=== PATIENT | male | born 1950 | race African-American/Black ===

== ENCOUNTER 2017-03-13 16:16 | Inpatient (IN) ==
[2017-03-13] MEDS ORDERED: SODIUM CHLORIDE 0.9% 500 ML IV STA (17:04)
[2017-03-13] MEDS ORDERED: ONDANSETRON 4 MG/2 ML VIAL IV STA (17:04)
[2017-03-13] MEDS ORDERED: PANTOPRAZOLE 40 MG VIAL IV STA (17:04)
[2017-03-13] MEDS ORDERED: PANTOPRAZOLE 40 MG VIAL IV ONE (17:20)
[2017-03-13] MEDS ORDERED: ONDANSETRON 4 MG/2 ML VIAL ONE (17:20)
--- NOTE | 2017-03-13 17:38 | XRay Report ---
Portable chest Date: 03/13/2017 Clinical history: Shortness of breath Comparison: 02/22/2017 Technique: Portable AP sitting chest Findings: The heart is small and compressed by the over expanded lungs. Chronic scarring in the lungs with stable mediastinum. Degenerative changes are noted. Impression: COPD with chronic scarring. No acute cardiopulmonary pathology identified. PROCEDURE INTERPRETED AT [facility] DEPARTMENT OF RADIOLOGY Final Report Signed by: Dr. Zohreh Garcia
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
[2017-03-13 17:49] LABS: Basophils % 0.3 % (0.0-0.8); Hematocrit 24.8 VOL% (42.0-52.0); Hemoglobin 8.6 GM/DL (14.0-18.0); Immature Granulocytes % 0.8 %; Immature Granulocytes Absolute 0.11 #; Lymphocytes # 3.4 10*3/uL (1.4-4.0); Lymphocytes % 23.4 % (21.2-54.2); Mean Corpuscular HGB Conc 34.7 GM/DL (32-36); Mean Corpuscular Hemoglobin 32 PG (27-34); Mean Corpuscular Volume 91.5 FL (87-102); Mean Platelet Volume 11.5 FL (9.6-12.0); Monocytes # 1.5 10*3/uL (0.11-0.8); Monocytes % 10.7 % (1.7-12.7); NRBC # 0.04 10*3/uL; Neutrophils # 9.4 10*3/uL (1.4-7.4); Neutrophils % 64.8 % (38.7-73.9); Platelet Count 153 T/CUMM (130-400); Red Blood Count 2.71 MC/CUMM (3.8-5.5); Red Cell Distribution Width 13.7 % (9.3-17.3); White Blood Count 14.4 T/CUMM (4-12)
--- NOTE | 2017-03-13 17:51 | Emergency Department Note ---
Stephanie Myers [place], am scribing for, and in the presence of, Nahid Parsk MD 17:16. Charly Myers Charles R, MD, personally performed the services described in this documentation, ascribed by Chalo Brown in my presence, and it is both accurate and complete [id number] . Arrival - Arrival Chief Complaint: Nausea/Vomiting/Diarrhea Stated Complaint: VOMITING/OFF BALANCE ED Nursing Triage Note: PT C/O N/V/D AND CHILLS SINCE SATURDAY. STATES STOOL APPEARS BLACK. PT STATES TODAY HE FEELS OFF BALANCE. Mode of Arrival: Ambulatory Limitations: No Limitations Source: Patient Time Seen by Provider: 03/13/17 16:43 - History of Present Illness HPI Narrative: This is a 66 y/o black male presenting to the ED with c/o nausea, vomiting , right sided abdominal pain, and melena stools that onset two days ago. Pt states he ate mushrooms from the grocery store and this is when the vomiting onset. Pt states he drinks alcohol every other day and smokes daily. Pt has intermittent chest pain, states he has vertigo upon standing. Pt has fallen three times today due to being off balance. Pt states when he fell he hit his right side. His PCP is Dr. Lane. He denies fever, chills, diarrhea, back pain , SANTOYO, vision change, and dysuria. Pt's PMHx is unremarkable and states he does not take daily medications. Consistency: constant Severity: moderate Allergies/Adverse Reactions: Allergies Allergy/AdvReac Type Severity Reaction Status Date / Time No Known Allergies Allergy Verified 03/13/17 16:25 Review of System - Review of System 12 point system: reviewed and no additional remarkable complaints except as stated - Review of System Constitutional: Absent: chills, fever, weakness Eyes: Absent: vision change Head/Ears/Nose/Throat: Absent: nasal drainage Respiratory: Absent: cough, wheezing Cardiovascular: Absent: chest pain, dyspnea on exertion Gastrointestinal: Present: abdominal pain (right sided abdominal pain ), nausea , vomiting, melena. Absent: diarrhea Genitourinary male: Absent: dysuria Musculoskeletal: Absent: arm pain, back pain, leg pain, neck pain Skin: Absent: rash Neurological: Present: vertigo. Absent: headache, weakness, numbness, confusion Psychiatric: Absent: anxiety Endocrine: Absent: fatigue Hematological/Lymphatic: Absent: easy bleeding Allergic/Immunologic: Absent: facial swelling Medical,Surgical,& Family Hx - Surgical History Abdominal Surgeries: Surgical HX of: Abdominal Surgery (WOUNDED IN [place]) - Social History Smoking Status: Current every day smoker Frequency of Alcohol Use: Frequently Type of Drug Use: None Exam Vital Signs: Vital Signs Temperature 98.0 F 03/13/17 17:24 Pulse Rate 124 H 03/13/17 17:24 Respiratory Rate 20 03/13/17 17:24 Blood Pressure 102/85 03/13/17 17:24 O2 Sat by Pulse Oximetry 97 03/13/17 17:24 - General General appearance: alert, in no apparent distress - Head Head exam: Present: atraumatic, normocephalic, normal inspection - Eye Eye exam: Present: PERRL, EOMI. Absent: normal appearance (pale conjunctiva ) - ENT ENT exam: Present: mucous membranes dry, TM's normal bilaterally, normal external ear exam. Absent: normal exam, normal oropharynx, mucous membranes moist - Neck Neck exam: Present: normal inspection, full ROM, trachea midline. Absent: tenderness - Chest Chest inspection: Present: normal inspection, symmetric chest wall rise. Absent : tenderness - Respiratory Respiratory exam: Present: rhonchi (bilateral ). Absent: normal lung sounds bilaterally - Cardiovascular Cardiovascular exam: Present: normal rhythm, tachycardia, normal heart sounds. Absent: regular rate - Abdominal Exam Abdominal exam: Present: soft, tenderness (right sided abdominal pain ), normal bowel sounds. Absent: distention - Extremities Exam Extremities exam: Present: normal inspection, full ROM, normal capillary refill. Absent: tenderness, pedal edema, calf tenderness - Back Exam Back exam: Present: normal inspection, full ROM. Absent: tenderness - Neurological Exam Neurological exam: Present: alert, oriented X3, CN II-XII intact, normal gait, reflexes normal - Psychiatric Psychiatric exam: Present: normal affect, normal mood - Skin Skin exam: Present: warm, dry, intact, normal color. Absent: rash Course - Consultations Consultation #1: Hospitalist will admit patient Time: 17:56 Results - Labs CBC & BMP: 03/13/17 17:07 03/13/17 17:07 Lab Results: I have reviewed the patients labs Disposition Clinical Impression: Acute blood loss anemia, GI bleed, Generalized weakness, Hypokalemia Case discussed with: patient Disposition: Still a Patient Condition: Guarded Time of Disposition: 17:56
[2017-03-13 18:02] LABS: PT Patient Result 10.6 SECS
--- NOTE | 2017-03-13 18:02 | EKG Report ---
Stationary ECG Study [facility] ER Test Date: 03/13/2017 6:01:01 PM Pat Name: BRIGIDA LARES Department: Room: Gender: M [employer] Professor: LINDSAY : 1950 Requested by: Nahid Morgan Order Number: [id number] Reading MD: STEVEN CACERES Intervals [place] Rate: 96 P: 81 UT: 137 QRS: 82 QRSD: 83 T: 77 QT: 384 QTc: 438 Interpretive Statements SINUS RHYTHM NONSPECIFIC T-WAVE ABNORMALITY Electronically Signed On 03-18-17 11:26:07 CDT by STEVEN CACERES [email or web address]
[2017-03-13 18:07] LABS: Albumin 3.4 G/DL (3.4-5.0); Calcium 8.4 MG/DL (8.5-10.1); Osmolality,Calculated 290.8 MOS/KG (273-304); Total Protein 5.6 G/DL (6.4-8.3); Troponin I Only 0.025 NG/ML (0.00-0.045)
[2017-03-13] MEDS ORDERED: POTASSIUM CHLORIDE 20 MEQ TABLET PO STA (18:26)
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
[2017-03-13 18:43] LABS: Risk Ratio 2.67; VLDL CHOLESTEROL 55.8 MG/DL
[2017-03-13] MEDS ORDERED: LORazepam 2 MG/1 ML VIAL IV PRN (18:45)
[2017-03-13] MEDS ORDERED: POTASSIUM CHLORIDE 20 MEQ TABLET PO ONE (18:47)
[2017-03-13] MEDS ORDERED: THIAMINE INJ 100 MG, FOLIC ACID INJ 1 MG, MULTIVITAMIN INJ 10 ML in SODIUM CHLORIDE 0.9... IV ONE (19:03)
[2017-03-13 19:51] LABS: Apearance,Urine CLEAR (Clear); Bilirubin,Urine Negative (Negative); Blood, Urine Negative (Negative); Glucose,Urine (UA) Negative (Negative); Hyaline Casts,Urine 3 /LPF (0-3); Ketones,Urine Negative (Negative); Mucus,Urine Occasional /LPF (Occasional); Nitrite,Urine Negative (Negative); Protein,Urine Negative; RBC,Urine 2 /HPF (0-4); Squamous Epithelial Cell,Urine Occasional /HPF (0-10); Urine Color Yellow (Yellow); Urine Specific Gravity 1.016 (1.001-1.035); Urine Urobilinogen < 2.0 EU/DL (0.2-1.0); WBC,Urine 4 /HPF (0-6)
[2017-03-13] MEDS ORDERED: POTASSIUM CHLORIDE RIDER 10 MEQ in PREMIX 1 EACH IV PRN (20:04)
[2017-03-13 20:05] LABS: Barbiturates Screen,Urine Negative (Negative); Benzodiazepines Screen,Urine Negative (Negative); Cannabinoid Screen,Urine Positive (Negative); Opiate Screen,Urine Negative (Negative); Phencyclidine Screen,Urine Negative (Negative)
[2017-03-13 20:18] LABS: Folate 19.4 NG/ML (5.4-24.0)
[2017-03-13 20:33] LABS: Hematocrit 21.6 VOL% (42.0-52.0); Hemoglobin 7.5 GM/DL (14.0-18.0)
[2017-03-13] MEDS: SODIUM CHLORIDE 0.9% 1,000 ML IV SCH (20:36)
[2017-03-13 21:02] LABS: % Iron Saturation 63.9 % (18-50); Ferritin 107.2 ng/ml (26-388); Troponin I Only 0.029 NG/ML (0.00-0.045)
--- NOTE | 2017-03-13 21:08 | Ultrasound Report ---
Exam: Carotid ultrasound Date: 03/13/2017 Comparison: None Technique: Duplex scans of the carotid and vertebral arteries using B-mode/Smyth scale imaging and Doppler spectral analysis and color flow. Reason: Syncope Findings: The right ICA measures 5.8 mm in diameter and the left ICA measures 5.8 mm in diameter. Color-flow documented in the visualized arteries. The peak systolic velocities are as follows: Right CCA: 85.9 cm/s Right ICA: 103.6 cm/s Right ECA: 116.8 cm/s Left CCA: 82.4 cm/s Left ICA: 100.0 cm/s Left ECA: 124.2 cm/s The peak systolic ICA/CCA velocity ratios are as follows: 1.2 on the right and 1.2 on the left. Antegrade flow is present in both vertebral arteries. Impression:[Less than 50% stenosis in both internal carotid arteries with minimal heterogeneous plaque formation. Antegrade flow in both vertebral arteries.] The Society of Radiologists in Ultrasound consensus conference criteria was used. The Ultrasound images were captured and stored. PROCEDURE INTERPRETED AT [facility] DEPARTMENT OF RADIOLOGY Final Report Signed by: Dr. Zohreh Garcia
--- NOTE | 2017-03-13 21:11 | Ultrasound Report ---
Exam: US abdomen Date: 03/13/2017 8:04 PM Comparison: None Indication: Vomiting Technique:[Multiple transabdominal real-time scans were obtained of the abdomen. Ultrasound images were captured distorted.] Color flow scans obtained. Findings: No gallbladder pathology is identified. CBD is normal in size measuring 3.5 mm. The liver, spleen, and kidneys have an unremarkable appearance. Right kidney measures 100 mm in length. Left kidney measures 95 mm in length. The pancreas and aortic bifurcation are obscured by bowel gas. The visualized aorta is normal in size with color flow documented in the IVC and portal vein. Impression: No definite gallbladder pathology identified. The pancreas is obscured by bowel gas. The Ultrasound images were captured and stored. PROCEDURE INTERPRETED AT [facility] DEPARTMENT OF RADIOLOGY Final Report Signed by: Dr. Zorheh Garcia
[2017-03-13 21:27] LABS: Hepatitis A Ab IgM Quant 0.16 Index; Hepatitis A Ab IgM Result Negative (Negative); Hepatitis B Core IgM Quant 0.17 Index; Hepatitis B Core IgM Result Negative (Negative); Hepatitis B Surface Ag Quant < 0.10 Index; Hepatitis B Surface Ag Result Negative (Negative); Hepatitis C Virus Ab Quant 0.09 Index; Hepatitis C Virus Ab Result Negative (Negative)
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
[2017-03-13] MEDS ORDERED: SODIUM CHLORIDE 0.9% 250 ML IV PRN (22:28)
[2017-03-13] MEDS ORDERED: FUROSEMIDE 20 MG/2 ML VIAL IV ONE (22:31)
[2017-03-14] MEDS: PANTOPRAZOLE INJ 200 MG in SODIUM CHLORIDE 0.9% 250 ML IV SCH ×2 (00:06→21:17)
[2017-03-14] MEDS: SODIUM CHLORIDE 0.9% 1,000 ML IV SCH ×3 (04:07→21:18)
[2017-03-14 07:46] LABS: Basophils # 0.1 10*3/uL (0.0-0.2); Basophils % 0.6 % (0.0-0.8); Eosinophils % 0.3 % (0.00-10.9); Hematocrit 25.6 VOL% (42.0-52.0); Immature Granulocytes % 0.3 %; Immature Granulocytes Absolute 0.03 #; Lymphocytes # 3.6 10*3/uL (1.4-4.0); Lymphocytes % 34.9 % (21.2-54.2); Mean Corpuscular HGB Conc 35.2 GM/DL (32-36); Mean Corpuscular Hemoglobin 31 PG (27-34); Mean Corpuscular Volume 88.3 FL (87-102); Mean Platelet Volume 10.8 FL (9.6-12.0); Monocytes # 1.1 10*3/uL (0.11-0.8); Monocytes % 10.8 % (1.7-12.7); NRBC # 0.02 10*3/uL; Neutrophils # 5.5 10*3/uL (1.4-7.4); Neutrophils % 53.1 % (38.7-73.9); Platelet Count 127 T/CUMM (130-400); Red Cell Distribution Width 14.6 % (9.3-17.3); White Blood Count 10.3 T/CUMM (4-12)
[2017-03-14 08:14] LABS: Calcium 7.5 MG/DL (8.5-10.1); Osmolality,Calculated 287.3 MOS/KG (273-304); Potassium 3.7 MMOL/L (3.5-5.1)
[2017-03-14 08:17] LABS: Troponin I Only 0.025 NG/ML (0.00-0.045)
[2017-03-14 09:07] LABS: Albumin 2.7 G/DL (3.4-5.0); Bilirubin,Total 0.6 MG/DL (0.2-1.0); Calcium 7.5 MG/DL (8.5-10.1); Magnesium 1.9 MG/DL (1.8-2.4); Osmolality,Calculated 287.3 MOS/KG (273-304); Potassium 3.6 MMOL/L (3.5-5.1); Total Protein 4.9 G/DL (6.4-8.3)
--- NOTE | 2017-03-14 10:16 | Hospitalist Progress Note ---
<Suha Aguirreda - Last Filed: 03/14/17 10:13> Assessment and Plan (1) ETOH abuse Status: Acute Assessment and plan: The patient admitted to drinking daily. We will start withdrawal protocol and monitor for impending DT's. 03/14-No s/s of withdrawal noted; however he has not met the 24 hour adrian yest; we will monitor. Current Visit: Yes (2) Nicotine abuse Status: Acute Assessment and plan: Patient reported current smoking status. He expresses no desire to stop; however agreed to nicotine patch placement. Current Visit: Yes (3) Acute blood loss anemia Status: Acute Current Visit: Yes (4) GI bleed Status: Acute Assessment and plan: We will hydrate, start PPI gtt, and keep NPO. We will obtain serial H/H and transfuse if needed. Will consult GI to evaluate. 03/14-Tranfused on last night; Protonix gtt infsuing; continue IVF's, keep NPO. Awaiting evaluation per GI. Current Visit: Yes Qualifiers: GI bleed type/associated pathology: unspecified gastrointestinal hemorrhage type Qualified Code(s): K92.2 - Gastrointestinal hemorrhage, unspecified (5) Acute kidney injury Status: Acute Assessment and plan: 03/13This is most likely due volume depletion. We will rehydrate and recheck labs in AM. 03/14-Improvement in renal function; continue IVF as ordered. Current Visit: Yes Hospitalist: Subjective Interval history: Patient seen and examined; multiple bloody stools on last night. Transfused on last night; awaiting GI consult for possible scope today. Exam - Constitutional Vitals: Period Temp Pulse Resp BP Sys/Rodriguez Pulse Ox Last 24 Hr 97.4 F-99.6 F 68-111 16-20 83-127/59-87 96-100 General appearance: normal weight, no acute distress - Head Head exam: Present: normal inspection, normocephalic, atraumatic - Eye Eye exam: Present: EOMI. Absent: conjunctival injection, nystagmus Pupils: Present: FERMIN, normal accommodation - ENT ENT exam: Present: normal exam - Neck Neck exam: Present: normal inspection. Absent: lymphadenopathy, meningismus, tenderness, thyromegaly - Respiratory Respiratory exam: Present: clear to auscultation bilaterally. Absent: rales, rhonchi, stridor, wheezes - Cardiovascular Cardiovascular exam: Present: regular rate and rhythm. Absent: carotid bruit, diastolic murmur, gallop, JVD, rubs, systolic murmur - GI/Abdominal GI/Abdominal exam: Present: normal bowel sounds, soft. Absent: distended, firm , guarding, tenderness - Extremities Exam Extremities exam: Present: normal inspection, normal capillary refill, full ROM. Absent: edema - Back Exam Back exam: Present: normal inspection - Neurological Exam Neurological exam: Present: alert, oriented X3, CN II-XII intact - Psychiatric Psychiatric exam: Present: normal affect, normal mood - Skin Skin exam: Present: warm, dry Results - Labs CBC & BMP: 03/14/17 07:34 03/14/17 08:28 Lab Results: I have reviewed the past 24 hour labs <Jeevan Azul - Last Filed: 03/14/17 11:32> Hospitalist: Subjective Interval history: Patient seen and examined along with HERMANN Aguirre, agree with history, assessment and plan as documented. H/H improved after blood transfusion overnight. GI consulted. Exam - Constitutional Vitals: Period Temp Pulse Resp BP Sys/Rodriguez Pulse Ox Last 24 Hr 97.4 F-99.6 F 66-111 16-20 83-127/59-87 96-100 Results - Labs CBC & BMP: 03/14/17 07:34 03/14/17 08:28
--- NOTE | 2017-03-14 13:07 | Gastrointestinal Consult Note ---
<JamessusannahAnna Marie Marisel - Last Filed: 03/14/17 13:03> Assessment and Plan (1) GI bleed Status: Acute Assessment and plan: 03/14-report of sudden onset severe abdominal pain and cramping with nausea, vomiting, and melena. History of long-term alcohol use as well as marijuana. Findings on admission of anemia with hemoglobin 10.5. CT of abdomen done without contrast on admission with only findings of duodenal diverticulum, gaseous distention of colon, and lipoma to right abdominal wall musculature. 4 + occult stools for blood. Plan for EGD tomorrow to further evaluate. Plan an addendum to follow by Dr. Mohan. Current Visit: Yes Qualifiers: GI bleed type/associated pathology: unspecified gastrointestinal hemorrhage type Qualified Code(s): K92.2 - Gastrointestinal hemorrhage, unspecified History of Present Illness Chief complaint: Abdominal pain, melena History of present illness: Mr. Wade is a 66 year old male who presented to the emergency room on yesterday afternoon with complaints of nausea, vomiting, right-sided abdominal pain and melena. Patient is a poor historian at present time due to he is agitated regarding his n.p.o. status. Patient does not provide very much history. Information is obtained mostly from chart review. Patient is reported to have a history of abdominal surgery as result of a shrapnel injury that he sustained during his time at [facility]. He states that on yesterday after he ate some mushrooms he just purchased from the store, he had a sudden onset of nausea and vomiting. He also complains of some chest pain and dizziness following this. He states that he did fall several times after this. He reports having some dark tarry stools as of recent as well. He has a history of smoking and he does drink daily with history of long-term alcohol use. Patient was found on admission to be hypotensive and was fluid resuscitated. He states that he does take naproxen often here recently due to dental pain. He denies a history of weight loss but does report that he uses marijuana regularly. He cannot recall his last drink but does report drinking a half a pint of liquor every other day. He has no prior history of endoscopy. He is seen at the [facility] for his routine care per patient. On admission he was found to have a hemoglobin of 7.5. He received 2 units of packed red blood cells and hemoglobin currently stable at 9.0. BUN/creatinine ratio 34. He was positive for marijuana on his drug screen. Negative hepatitis panel. CT of abdomen findings noted. Home Medications Medication Instructions Recorded Confirmed Type Albuterol Inhaler [Proventil 2 puffs INH Q4HR 03/14/17 03/14/17 History Inhaler] Cyproheptadine Tab [Periactin Tab] 4 mg PO TID 03/14/17 03/14/17 History Naproxen [Naprosyn Tab] 75 mg PO BID 03/14/17 03/14/17 History Allergies Allergy/AdvReac Type Severity Reaction Status Date / Time No Known Allergies Allergy Verified 03/13/17 16:25 Medical,Surgical,& Family Hx - Surgical History Abdominal Surgeries: Surgical HX of: Abdominal Surgery (WOUNDED IN [place]) - Social History Smoking Status: Current every day smoker Frequency of Alcohol Use: Frequently Type of Drug Use: None 12 point system: reviewed and no additional remarkable complaints except as stated - Constitutional Constitutional: Present: as per HPI - EENT Eyes: Present: as per HPI Ears: Present: as per HPI Nose, mouth and throat: Present: as per HPI - Cardiovascular Cardiovascular: Present: as per HPI - Respiratory Respiratory: Present: as per HPI - Gastrointestinal Gastrointestinal: Present: as per HPI, abdominal pain, melena, nausea, vomiting - Genitourinary Genitourinary: Present: as per HPI - Musculoskeletal Musculoskeletal: Present: as per HPI - Neurological Neurological: Present: as per HPI - Psychiatric Psychiatric: Present: as per HPI - Endocrine Endocrine: Present: as per HPI - Hematologic/Lymphatic Hematologic/Lymphatic: Present: as per HPI Exam - Constitutional Vitals: Period Temp Pulse Resp BP Sys/Rodriguez Pulse Ox Last 24 Hr 97.4 F-99.6 F 62-111 16-20 83-127/59-87 96-100 General appearance: normal weight, under weight - Head Head exam: Present: normal inspection, normocephalic - Eye Eye exam: Present: other (Lids and conjunctive are unremarkable). Absent: scleral icterus - ENT ENT exam: Present: normal exam, normal oropharynx - Neck Neck exam: Present: normal inspection - Respiratory Respiratory exam: Present: clear to auscultation bilaterally. Absent: rales, rhonchi, wheezes - Cardiovascular Cardiovascular exam: Present: regular rate and rhythm. Absent: diastolic murmur , JVD, systolic murmur - GI/Abdominal GI/Abdominal exam: Present: normal bowel sounds, soft. Absent: ascites, distended, mass, organomegaly, tenderness - Extremities Exam Extremities exam: Present: normal inspection, full ROM - Back Exam Back exam: Present: normal inspection - Neurological Exam Neurological exam: Present: alert, oriented X3 - Psychiatric Psychiatric exam: Present: normal affect, normal mood - Skin Skin exam: Present: normal color, warm, dry Results - Labs CBC & BMP: 03/14/17 07:34 03/14/17 08:28 Lab Results: I have reviewed the past 24 hour labs - Diagnostic Findings Procedure: CT Abdomen and Pelvis: report reviewed by me <Eric Mohan - Last Filed: 03/14/17 18:26> History of Present Illness History of present illness: Mr. Wade is a 66 year old male Exam - Constitutional Vitals: Period Temp Pulse Resp BP Sys/Rodriguez Pulse Ox Last 24 Hr 97.4 F-99.6 F 62-111 16-20 83-127/59-87 96-100 Results - Labs CBC & BMP: 03/14/17 14:11 03/14/17 08:28
[2017-03-14 14:26] LABS: Hematocrit 24.5 VOL% (42.0-52.0); Hemoglobin 8.3 GM/DL (14.0-18.0)
--- NOTE | 2017-03-14 16:39 | Event Note ---
Patient seen and evaluated. Vital signs and H/H are stable. No futher bloody stools noted. He is hemodynamically stable at this point. He is appropriate to transfer to the telemetry unit for continuation of care.
--- NOTE | 2017-03-14 17:27 | ECHO Report ---
Manny Wade Exam Date: 03/14/2017 09:08 Referring Physician: Technologist: Lucero Metcalf RDCS Age: 66 Ht (in): 67 Wt (lb): 123 Gender: M Exam Location: [facility] Echo Indications: Syncope and collapse, Acute blood loss anemia, Acute kidney injury, Weakness, Nicotine abuse, ETOH abuse BP: 99 / 65 HR: 74 Rhythm: Sinus Technical Quality: IMPRESSIONS Normal chamber sizes Normal LV systolic function with ejection fraction estimate to be 65% 1+ tricuspid regurgitation with RVSP 28 mmHg plus RAP MEASUREMENTS (Male / Female) Normal Values 2D ECHO LV Diastolic Diameter PLAX 4.1 cm 4.2 - 5.9 / 3.9 - 5.3 cm LV Systolic Diameter PLAX 2.6 cm LV Fractional Shortening PLAX 36.0 % IVS Diastolic Thickness 0.8 cm 0.6 - 1.0 / 0.6 - 0.9 cm LVPW Diastolic Thickness 0.8 cm 0.6 - 1.0 / 0.6 - 0.9 cm RV Internal Dim ED PLAX 3.4 cm Aortic Root Diameter 3.0 cm LA Systolic Diameter LX 2.8 cm 3.0 - 4.0 / 2.7 - 3.8 cm DOPPLER TR Peak Velocity 265.0 cm/s TR Peak Gradient 28.1 mmHg FINDINGS Left Ventricle Normal left ventricular cavity size. Normal left ventricular wall thickness. Left ventricular ejection fraction is estimated Right Ventricle The right ventricle is normal in size and function. Right Atrium The right atrium is normal in size. Left Atrium The left atrium is normal in size. Mitral Valve Morphologically normal mitral valve without significant stenosis or prolapse. There is no mitral regurgitation. Aortic Valve Morphologically normal aortic valve without significant sclerosis or stenosis. There is no aortic regurgitation. Tricuspid Valve Morphologically normal tricuspid valve. Mild tricuspid valve regurgitation. Tricuspid regurgitation velocities suggest a PAP of 38 mmHg. Pulmonic Valve Morphologically normal pulmonic valve without significant stenosis. There is no pulmonic regurgitation. Pericardium Normal pericardium without effusion. Aorta Normal ascending aorta dimension. Byron Martínez (Electronically Signed) Final Date: 14 March 2017 17:26
[2017-03-15] MEDS: SODIUM CHLORIDE 0.9% 1,000 ML IV SCH ×3 (04:41→20:45)
[2017-03-15 06:14] LABS: Basophils # 0.1 10*3/uL (0.0-0.2); Basophils % 0.8 % (0.0-0.8); Eosinophils # 0.2 10*3/uL (0.0-0.87); Eosinophils % 3.2 % (0.00-10.9); Hematocrit 22.2 VOL% (42.0-52.0); Hemoglobin 7.6 GM/DL (14.0-18.0); Immature Granulocytes % 0.3 %; Immature Granulocytes Absolute 0.02 #; Lymphocytes # 2.7 10*3/uL (1.4-4.0); Lymphocytes % 37.5 % (21.2-54.2); Mean Corpuscular HGB Conc 34.2 GM/DL (32-36); Mean Corpuscular Hemoglobin 30 PG (27-34); Mean Corpuscular Volume 88.8 FL (87-102); Mean Platelet Volume 11.5 FL (9.6-12.0); Monocytes # 0.7 10*3/uL (0.11-0.8); Monocytes % 10.1 % (1.7-12.7); NRBC # 0.03 10*3/uL; Neutrophils # 3.5 10*3/uL (1.4-7.4); Neutrophils % 48.1 % (38.7-73.9); Platelet Count 122 T/CUMM (130-400); Red Cell Distribution Width 15.3 % (9.3-17.3); White Blood Count 7.3 T/CUMM (4-12)
[2017-03-15] MEDS ORDERED: SODIUM CHLORIDE 0.9% 250 ML IV PRN ×3 (06:39→07:48)
[2017-03-15 07:14] LABS: Albumin 2.3 G/DL (3.4-5.0); Bilirubin,Total 0.6 MG/DL (0.2-1.0); Calcium 7.1 MG/DL (8.5-10.1); Magnesium 1.9 MG/DL (1.8-2.4); Phosphorous 2.7 MG/DL (2.5-4.9); Potassium 3.6 MMOL/L (3.5-5.1)
--- NOTE | 2017-03-15 11:10 | Hospitalist Progress Note ---
<Suha Aguirreda - Last Filed: 03/15/17 11:15> Assessment and Plan (1) ETOH abuse Status: Acute Assessment and plan: The patient admitted to drinking daily. We will start withdrawal protocol and monitor for impending DT's. 03/14-No s/s of withdrawal noted; however he has not met the 24 hour adrian yesterday; we will monitor. 03/15-No symptoms noted; will continue to monitor. Current Visit: Yes (2) Nicotine abuse Status: Acute Assessment and plan: Patient reported current smoking status. He expresses no desire to stop; however agreed to nicotine patch placement. Current Visit: Yes (3) Acute blood loss anemia Status: Acute Current Visit: Yes (4) GI bleed Status: Acute Assessment and plan: We will hydrate, start PPI gtt, and keep NPO. We will obtain serial H/H and transfuse if needed. Will consult GI to evaluate. 03/14-Tranfused on last night; Protonix gtt infsuing; continue IVF's, keep NPO. Awaiting evaluation per GI. 03/15-EGD this AM; H/H at 7.6/22.2; will transfuse. Current Visit: Yes Qualifiers: GI bleed type/associated pathology: unspecified gastrointestinal hemorrhage type Qualified Code(s): K92.2 - Gastrointestinal hemorrhage, unspecified (5) Acute kidney injury Status: Acute Assessment and plan: 03/13This is most likely due volume depletion. We will rehydrate and recheck labs in AM. 03/14-Improvement in renal function; continue IVF as ordered. 03/15-Continue IVF as previously ordered. BUN/Creatinine stable at 12/0.70. Current Visit: Yes Hospitalist: Subjective Interval history: Patient seen and evaluated. No significant overnight issues. Transferred from ICU on last night. Noted decrease in H/H today; 7.6/22.2 drown from 8.3/24.5. Will transfuse; EGD this AM. Exam - Constitutional Vitals: Period Temp Pulse Resp BP Sys/Rodriguez Pulse Ox Last 24 Hr 97.3 F-99.5 F 60-80 15-20 87-126/56-75 97-100 General appearance: normal weight, no acute distress - Head Head exam: Present: normal inspection, normocephalic - Eye Eye exam: Present: EOMI. Absent: conjunctival injection Pupils: Present: FERMIN, normal accommodation - ENT ENT exam: Present: normal exam, normal external ear exam, normal oropharynx - Neck Neck exam: Present: normal inspection. Absent: lymphadenopathy, meningismus, tenderness, thyromegaly - Respiratory Respiratory exam: Present: clear to auscultation bilaterally. Absent: rales, rhonchi, stridor, wheezes - Cardiovascular Cardiovascular exam: Present: regular rate and rhythm. Absent: carotid bruit, diastolic murmur, gallop, JVD, rubs, systolic murmur - GI/Abdominal GI/Abdominal exam: Present: normal bowel sounds, soft - Extremities Exam Extremities exam: Present: normal inspection, full ROM. Absent: normal capillary refill, edema - Neurological Exam Neurological exam: Present: alert, oriented X3, CN II-XII intact - Psychiatric Psychiatric exam: Present: normal affect, normal mood - Skin Skin exam: Present: normal color, warm, dry Results - Labs CBC & BMP: 03/15/17 04:37 03/15/17 04:37 Lab Results: I have reviewed the past 24 hour labs <Herve Tan - Last Filed: 03/15/17 16:42> Hospitalist: Subjective Interval history: She had visits with nurse practitioner. 66-year-old with alcohol abuse who was admitted for GI bleed. Chart reviewed, previous events noted. Mild drop in hematocrit noted, stable hemodynamics. I agree with planned PRBC transfusion today. Monitor H&H Exam - Constitutional Vitals: Period Temp Pulse Resp BP Sys/Rodriguez Pulse Ox Last 24 Hr 96.4 F-99.0 F 56-71 14-20 93-134/54-068 97-100 Results - Labs CBC & BMP: 03/15/17 04:37 03/15/17 04:37
[2017-03-15] MEDS ORDERED: PROPOFOL 200 MG/20 ML VIAL IV ONE (11:13)
[2017-03-15] MEDS ORDERED: LIDOCAINE 2% 5 ML VIAL ONE (11:13)
--- NOTE | 2017-03-15 11:29 | History and Physical Update ---
History and Physical Update - Physical Exam Mental Status: alert and oriented Heart: regular rate and rhythm Lung: clear to auscultation Abdomen: within normal limits Vitals: within normal limits
--- NOTE | 2017-03-15 11:33 | Operative Note ---
Date of procedure: 03/15/17 Pre-op diagnosis: Melena Procedure: EGD 66-year-old gentleman with acute GI bleeding and melena history of nonsteroidal and alcohol use now for upper endoscopy to further evaluate. Informed consent was obtained the patient He was sedated with MAC anesthesia per anesthesia protocol. Patient placed in left lateral decubitus position the Olympus flexible video upper endoscope was inserted into the oral cavity under direct vision the esophagus was intubated. Findings: Esophagus-normal esophageal mucosa no esophageal varices Kyle's or stricture was identified. Small hiatal hernia was present. Stomach-normal insufflation no blood was present in the stomach. There are several acute small gastric ulcers in the antrum and at the level of the incisura. The largest of these is approximately 6 mm on the incisura with no visible vessel or active bleeding. The other ulcers are all 3-4 mm and are present mostly in the antrum of the stomach. These ulcers appear benign and are likely nonsteroidal induced was elected to not biopsy them at this time. Pylorus-normal Duodenum-acute bulbar duodenitis without active ulceration. No blood was present to the third portion of the duodenum. The procedure terminated placed our procedure well his discharge recovery in good condition. Postop diagnosis: 1. Acute peptic ulcer disease with no visible vessel or stigmata of recent bleeding. Suspect secondary to nonsteroidals and alcohol use. Continue PPI treatment and transfuse packed red blood cells as needed. Will need repeat endoscopy in 2 months to verify healing. Will increase diet as tolerated. Discontinuation of nonsteroidals and alcohol are recommended. Anesthesia: MAC Surgeon / Physician: Eric Mohan Estimated blood loss: none Specimens: none sent Condition: stable Disposition: post procedure unit Results - Labs CBC & BMP: 03/15/17 04:37 03/15/17 04:37 Discharge Plan - Discharge Medications No Action Cyproheptadine Tab [Periactin Tab] 4 mg PO TID Naproxen [Naprosyn Tab] 75 mg PO BID Albuterol Inhaler [Proventil Inhaler] 2 puffs INH Q4HR - Follow Up or Referral - Forms/Instructions
--- NOTE | 2017-03-15 11:35 | Anesthesia Post-Op ---
Anesthesia Post OP - Post Ansesthetic Evaluation Patient seen in post op: Yes Resp: within normal limits CV: within normal limits Mental: within normal limits Temp: within normal limits [id number]: within normal limits Nausea and Vomiting: within normal limits Pain: within normal limits
[2017-03-15] MEDS: PANTOPRAZOLE INJ 200 MG in SODIUM CHLORIDE 0.9% 250 ML IV SCH (20:45)
[2017-03-16] MEDS: PANTOPRAZOLE INJ 200 MG in SODIUM CHLORIDE 0.9% 250 ML IV SCH (00:25)
[2017-03-16] MEDS: SODIUM CHLORIDE 0.9% 1,000 ML IV SCH (04:07)
[2017-03-16 04:26] LABS: Basophils # 0.1 10*3/uL (0.0-0.2); Basophils % 0.7 % (0.0-0.8); Eosinophils # 0.4 10*3/uL (0.0-0.87); Eosinophils % 3.7 % (0.00-10.9); Hematocrit 28.3 VOL% (42.0-52.0); Hemoglobin 9.7 GM/DL (14.0-18.0); Immature Granulocytes % 0.4 %; Immature Granulocytes Absolute 0.04 #; Lymphocytes % 30.7 % (21.2-54.2); Mean Corpuscular HGB Conc 34.3 GM/DL (32-36); Mean Corpuscular Hemoglobin 31 PG (27-34); Mean Platelet Volume 11.6 FL (9.6-12.0); Monocytes % 10.3 % (1.7-12.7); NRBC # 0.03 10*3/uL; Neutrophils # 5.3 10*3/uL (1.4-7.4); Neutrophils % 54.2 % (38.7-73.9); Platelet Count 131 T/CUMM (130-400); Red Blood Count 3.18 MC/CUMM (3.8-5.5); Red Cell Distribution Width 14.9 % (9.3-17.3); White Blood Count 9.8 T/CUMM (4-12)
[2017-03-16 04:48] LABS: Albumin 2.5 G/DL (3.4-5.0); Bilirubin,Total 0.8 MG/DL (0.2-1.0); Calcium 7.7 MG/DL (8.5-10.1); Osmolality,Calculated 282.1 MOS/KG (273-304); Phosphorous 3.7 MG/DL (2.5-4.9); Potassium 3.8 MMOL/L (3.5-5.1); Total Protein 4.3 G/DL (6.4-8.3)
--- NOTE | 2017-03-16 09:12 | Hospitalist History & Physical ---
Assessment and Plan (1) ETOH abuse Status: Acute Assessment and plan: The patient admitted to drinking daily. We will start withdrawal protocol and monitor for impending DT's. 03/14-No s/s of withdrawal noted; however he has not met the 24 hour adrian yesterday; we will monitor. 03/15-No symptoms noted; will continue to monitor. Current Visit: Yes (2) Nicotine abuse Status: Acute Assessment and plan: Patient reported current smoking status. He expresses no desire to stop; however agreed to nicotine patch placement. Current Visit: Yes (3) Acute blood loss anemia Status: Acute Current Visit: Yes (4) GI bleed Status: Acute Assessment and plan: We will hydrate, start PPI gtt, and keep NPO. We will obtain serial H/H and transfuse if needed. Will consult GI to evaluate. 03/14-Tranfused on last night; Protonix gtt infsuing; continue IVF's, keep NPO. Awaiting evaluation per GI. 03/15-EGD this AM; H/H at 7.6/22.2; will transfuse. Current Visit: Yes Qualifiers: GI bleed type/associated pathology: unspecified gastrointestinal hemorrhage type Qualified Code(s): K92.2 - Gastrointestinal hemorrhage, unspecified (5) Acute kidney injury Status: Acute Assessment and plan: 03/13This is most likely due volume depletion. We will rehydrate and recheck labs in AM. 03/14-Improvement in renal function; continue IVF as ordered. 03/15-Continue IVF as previously ordered. BUN/Creatinine stable at 12/0.70. Current Visit: Yes History of Present Illness History of present illness: Mr. Wade is a 66 year old male Home Medications Medication Instructions Recorded Confirmed Type Albuterol Inhaler [Proventil 2 puffs INH Q4HR 03/14/17 03/14/17 History Inhaler] Cyproheptadine Tab [Periactin Tab] 4 mg PO TID 03/14/17 03/14/17 History Naproxen [Naprosyn Tab] 75 mg PO BID 03/14/17 03/14/17 History Allergies Allergy/AdvReac Type Severity Reaction Status Date / Time No Known Allergies Allergy Verified 03/13/17 16:25 Medical,Surgical,& Family Hx - Medical History Neurology: No history of: Seizures - Surgical History Abdominal Surgeries: Surgical HX of: Abdominal Surgery (WOUNDED IN [place]) - Social History Smoking Status: Current every day smoker Frequency of Alcohol Use: Frequently Type of Drug Use: None Exam - Constitutional Vitals: Period Temp Pulse Resp BP Sys/Rodriguez Pulse Ox Last 24 Hr 96.4 F-99.2 F 54-71 14-20 91-134/54-068 96-100 Results - Labs CBC & BMP: 03/16/17 03:24 03/16/17 03:24
--- NOTE | 2017-03-16 09:17 | Gastrointestinal Progress Note ---
Assessment and Plan - Time spent with patient Time spent with patient: Greater than 30 minutes (1) Gastric ulcer Status: Acute Current Visit: Yes (2) ETOH abuse Status: Acute Current Visit: Yes (3) Other specified counseling Status: Acute Current Visit: Yes Exam (Progress Note) - Constitutional Vitals: Period Temp Pulse Resp BP Sys/Rodriguez Pulse Ox Last 24 Hr 96.4 F-99.2 F 54-71 14-20 91-134/54-068 96-100 Results - Labs CBC & BMP: 03/16/17 03:24 03/16/17 03:24 Note Addendum: PLEASE NOTE -- automatic citation of patient information is unavoidable in this electronic note. I have made a reasonable effort to review the information cited , but it is not a part of my evaluation, impression, or recommendation unless specifically discussed in the dictated text that follows. As well, voice recognition software was used in the creation of this clinical note. Reasonable effort was made to identify and correct gross errors. Despite proofreading, errors in chief bank examiner may be present, including nonsense verbiage at times. If you encounter such an error, please contact me at [phone] for discussion and correction. -- [place] Chief complaint: peptic ulcer History of present illness: the patient is a 66-year-old male seen for follow- up of peptic ulcer disease. The patient underwent upper endoscopy with Dr. Mohan yesterday and finding of several small gastric ulcers, not actively bleeding. The patient received three units of packed red blood cells overnight with an appropriate response. No overt blood loss has been reported overnight. The patient reports feeling well with no abdominal pain. He has tolerated an oral diet and expects to be discharged today. Review of systems: 12 point review of systems was negative except as documented above. Inpatient medications: reviewed Physical examination: Vital Signs: Current vital signs reviewed and documented above. General Appearance: well-appearing. Not acutely ill. Head: Normocephalic. Neck: Palpation of the neck revealed no abnormalities. Eyes: No scleral icterus. No scleral injection. No conjunctival pallor. Oral Cavity: Odor of breath was normal. No drooling was observed. Lips showed no abnormalities. Floor of the mouth showed no abnormalities. Pharynx: Oropharynx was normal. Lungs: Respiration rhythm and depth was normal. Cardiovascular: Heart rate and rhythm were normal. No murmurs were appreciated. Abdomen: abdomen was not distended. Abdominal palpation revealed no tenderness and no hepatosplenomegaly. Ascites was not discovered. Abdominal auscultation revealed positive bowel sounds. Musculoskeletal System: Musculoskeletal system was grossly normal. Neurological: level of consciousness was normal. Speech was normal. Skin: General appearance was normal. Color and pigmentation were normal. No skin lesions. Laboratory: what blood count 9.8, hemoglobin 9.7, hematocrit 28.3, platelets 131 , ALT 23, AST 31, total bilirubin 0.8 Radiology: reviewed Impressions: 1. Gastric ulcer -- this is likely from chronic NSAID and alcohol abuse. I recommend continued monitoring of blood counts with further transfusion as indicated. Otherwise I recommend continued volume management with crystalloid as indicated. I recommend continued proton pump inhibitor both now and after discharge for at least two months. I recommend abstinence from both alcohol and NSAID. The patient will need surveillance upper endoscopy in 2 [address] Mohan or with the [facility] at his discretion. 2. Other specified counseling: The patient was seen for greater than 30 minutes. The patient was counseled for greater than 50% of this time regarding differential diagnosis, likely diagnosis, diagnostic and therapeutic alternatives, risks/benefits/alternatives of medications and procedures, and plan of care generally. The patient expressed understanding and wishes to proceed. Recommendations: -- continued volume management -- continued monitoring of blood counts with transfusion as indicated -- continue proton pump inhibitor both now and for at least two months after discharge -- abstinence from both NSAID and alcohol -- surveillance upper endoscopy in 2 to 3 months
--- NOTE | 2017-03-16 09:17 | Discharge Summary ---
<Maryan Aguirre - Last Filed: 03/16/17 09:25> Hospital Course - Hospital Course Hospital Course: This is a pleasant 66 year old male that presented to the ED at [facility] on 03/12 with a chief compliant of nausea, vomiting, right sided abdominal pain, and melena. He reported no past medical history; however he does smoke and drink daily. He reported a remote history of abdominal surgery as a result of a shrapnel injury sustained during his tour of duty in [place]. He reported the onset of nausea shortly after ingesting some mushrooms that he purchased from the store. In addition, he reported intermittent chest pain and dizziness upon standing. He reported that he fell three times today as a result and injured his right side during one of these episodes. At the time of admission, he was found to be hypotensive. He was given fluids and his blood pressures improved. Labs were obtained. He was found to be hypokalemic at 3.0. In addition, his renal function was impaired with a BUN of 58 and Creatinine of 1.30. His WBC's were elevated at 14.4; however his H /H was noted at 8.6/24.8. He was admitted under the hospitalist services for continuation of care and GI was consulted. He was admitted, his volume was replaced. We expected that his blood levels would decrease in response to the previous and continuous blood loss. On the night of admission, serial H/H reported H/H of 7.5/21.6 in which he was transfused. On 03/14, he was evaluated by Dr. Mohan and advised of the need of EGD for evaluation and diagnosis. On 03/15, his blood levels were noted at 7.6/ 22.2, he was transfused again. He underwent EGD on 03/[address] Mohan which revealed acute peptic ulcer disease with no visible vessel or stigmata of recent bleeding which was suspected to be secondary to non-steroidal medication and alcohol use. Today his blood levels are stable at 9.7/28.3. His condition is stable. We feel that he is appropriate for discharge to follow-up with his PCP and GI as directed. He will start Omeprazole and MVI as ordered for discharge. He will need to follow-up with GI and repeat endoscopy in 2 months to verify healing. Spoke with patient in great detail on the need to abstain from alcohol consumption. Patient acknowledges the need the need to abstain and says that " he will try". Diagnosis - Discharge Diagnosis (1) ETOH abuse Status: Acute (2) Nicotine abuse Status: Acute (3) Acute blood loss anemia Status: Acute (4) GI bleed Status: Acute (5) Acute kidney injury Status: Acute Discharge Plan - Discharge Data Disposition: Disch To Home/Self Care - Discharge Medications New Pantoprazole Tab [Protonix Tab] 40 mg PO BID #60 tablet Multivitamin (Berocca) [Berocca] 1 tablet PO DAILY #60 tablet Continue Cyproheptadine Tab [Periactin Tab] 4 mg PO TID Albuterol Inhaler [Proventil Inhaler] 2 puffs INH Q4HR Discontinued Naproxen [Naprosyn Tab] 75 mg PO BID - Follow Up or Referral - Forms/Instructions Exam - Constitutional Vitals: Period Temp Pulse Resp BP Sys/Rodriguez Pulse Ox Last 24 Hr 96.4 F-99.2 F 54-71 14-20 91-134/54-068 96-100 Discharge Results Procedures and tests throughout hospitalization: Pending Orders 03/13/17 02:45 Occult Blood, Stool Routine Labs on day of discharge: Labs from last 24 hours 03/16/17 03/16/17 03/15/17 03:24 03:24 04:37 WBC 9.8 D RBC 3.18 L D Hgb 9.7 L D Hct 28.3 L MCV 89.0 MCH 31 MCHC 34.3 RDW 14.9 Plt Count 131 MPV 11.6 Neut % (Auto) 54.2 Lymph % (Auto) 30.7 [place] % (Auto) 10.3 Eos % (Auto) 3.7 Baso % (Auto) 0.7 Neut # (Auto) 5.3 Lymph # (Auto) 3.0 [place] # (Auto) 1.0 H Eos # (Auto) 0.4 Baso # (Auto) 0.1 Immature Gran % 0.4 Nucleated RBC % 0.3 Immature Gran # 0.04 Nucleated RBCs # 0.03 Sodium 142 Potassium 3.8 Chloride 108 H Carbon Dioxide 24 Anion Gap 13.8 BUN 13 Creatinine 0.90 GFR Calculation 94 BUN/Creatinine Ratio 14.00 Glucose 98 Calculated Osmolality 282.1 Calcium 7.7 L Phosphorus 3.7 Magnesium 2.0 Total Bilirubin 0.80 AST 31 ALT 23 Alkaline Phosphatase 59 Total Protein 4.3 L Albumin 2.5 L Globulin 1.8 L Albumin/Globulin Ratio 1.3 Thyroid [place] Prof Blood Type A POSITIVE Antibody Screen Negative Crossmatch See Detail 03/13/17 20:21 WBC RBC Hgb Hct MCV MCH MCHC RDW Plt Count MPV Neut % (Auto) Lymph % (Auto) [place] % (Auto) Eos % (Auto) Baso % (Auto) Neut # (Auto) Lymph # (Auto) [place] # (Auto) Eos # (Auto) Baso # (Auto) Immature Gran % Nucleated RBC % Immature Gran # Nucleated RBCs # Sodium Potassium Chloride Carbon Dioxide Anion Gap BUN Creatinine GFR Calculation BUN/Creatinine Ratio Glucose Calculated Osmolality Calcium Phosphorus Magnesium Total Bilirubin AST ALT Alkaline Phosphatase Total Protein Albumin Globulin Albumin/Globulin Ratio Thyroid [place] Prof 1.5 Blood Type Antibody Screen Crossmatch DS: Provider Date of admission: 03/13/17 18:04 Primary care physician: . No PCP Attending physician on admission: Jeevan Azul MD Consults: 03/13/17 20:04 Consult to Physician [CONS] Routine Comment: Consulting Provider: Eric Mohan Consulting Provider Notified: Yes Consult to Specialist Group: Gastroenterology Person Notified: HANY Date Notified: 03/14/17 Time Notified: 08:50 03/13/17 20:09 Consult to Pharmacy [CONS] Routine Reason for Pharmacy Consult: Adjust Meds Renal Funct Discharging clinician: Maryan Aguirre CNP <Herve Tan - Last Filed: 03/16/17 09:55> Hospital Course - Hospital Course Hospital Course: Shared visit with nurse practitioner, independently reviewed and examined patient. This is a 66-year-old man was admitted for nausea and vomited on right-sided abdominal pain plus melena. Found to be significantly anemic requiring transfusion of PRBC 2. [facility] neurology evaluated him and he had an EGD done which shows peptic ulcer disease with no active bleeding. He tolerated procedure well and remained stable afterwards. His hematocrit remained stable after initial transfusion. He was counseled on avoiding NSAIDs and alcohol and to return to GI for repeat EGD in the future. Rest of his hospital stay was uneventful. He will go on to down follow-up with his primary care physician gastroenterology as outpatient. - Time spent with patient Time with patient DS: Greater than 30 minutes Discharge Plan - Discharge Data Condition at Discharge: Stable Discharge Diet: advance to your usual diet Activity: resume usual activities as tolerated
[2017-03-16] MEDS ORDERED: PANTOPRAZOLE 40 MG TABLET PO SCH (09:30)
[2017-03-16] MEDS ORDERED: MULTIVITAMIN (BEROCCA) TABLET PO SCH (09:30)
[2017-03-16 12:07] VITALS: BP 141/77
[2017-03-17] MEDS ORDERED: PANTOPRAZOLE 40 MG VIAL IV SCH (09:00)
--- NOTE | 2017-03-20 07:59 | Physician Query Form ---
CLICK EDIT DOCUMENT TO SELECT QUERY ANSWER --> OK --> SIGN Roz Augustin RN Clinical Cupola Hoist Operator W) [phone] (f) [phone] [email or web address] PROVIDERS: Make your selection(s) from the choices in EACH section by typing an "x" and enter comments in the comment section. Please use your independent medical judgment in providing your response. This request does not imply that any particular answer is desired or expected. CLINICAL INDICATORS: (Providers should not edit this section) Based on documentation of "GI bleed" "Melena" "Acute blood loss anemia" EGD showed gastric ulcers and duodenal bulb users. Transfused 2 units PRBC. Based on the above, could you clarify the appropriate diagnosis, if significant , that supports the above abnormalities and additional evaluation, monitoring, and/or treatment rendered: ( ) Melena Due To Gastric Ulcers ( ) Melena Due To Duodenal Bulb Ulcers ( ) Melena Due To Other (please specify) _ ( ) Other, please specify: ( ) Clinically unable to determine COMMENTS: I Dr. Bingham was never involved in the care of this patient. Please remove this patient from my list. Use of terms such as suspected, likely, or probable (associated with a specific diagnosis that is being evaluated, monitored, or treated as if it exists) are acceptable and can be restated in the discharge summary if not ruled out. MTDD
--- NOTE | 2017-03-25 08:03 | Physician Query Form ---
CLICK EDIT DOCUMENT TO SELECT QUERY ANSWER --> OK --> SIGN Roz Augustin RN Clinical Flatbed Stitcher W) [phone] (f) [phone] [email or web address]: Make your selection(s) from the choices in EACH section by typing an "x" and enter comments in the comment section. Please use your independent medical judgment in providing your response. This request does not imply that any particular answer is desired or expected. CLINICAL INDICATORS: (Providers should not edit this section) Based on documentation of "GI bleed" "Melena" "Acute blood loss anemia" EGD showed gastric ulcers and duodenal bulb users. Transfused 2 units PRBC. Based on the above, could you clarify the appropriate diagnosis, if significant , that supports the above abnormalities and additional evaluation, monitoring, and/or treatment rendered: ( ) Melena due to gastric ulcers ( x) Melena due to duodenal bulb ulcers ( ) Melena due to other (please specify) ( ) Other, please specify: ( ) Clinically unable to determine COMMENTS: Use of terms such as suspected, likely, or probable (associated with a specific diagnosis that is being evaluated, monitored, or treated as if it exists) are acceptable and can be restated in the discharge summary if not ruled out. MTDD
--- NOTE | 2017-03-26 08:15 | Physician Query Form ---
CLICK EDIT DOCUMENT TO SELECT QUERY ANSWER --> OK --> SIGN Roz Augustin RN Clinical Yard Jacker W) [phone] (f) [phone] [email or web address] PROVIDERS: Make your selection(s) from the choices in EACH section by typing an "x" and enter comments in the comment section. Please use your independent medical judgment in providing your response. This request does not imply that any particular answer is desired or expected. CLINICAL INDICATORS: (Providers should not edit this section) Based on documentation of "GI bleed" "Melena" "Acute blood loss anemia" EGD showed gastric ulcers and duodenal bulb users. Transfused 2 units PRBC. Based on the above, could you clarify the appropriate diagnosis, if significant , that supports the above abnormalities and additional evaluation, monitoring, and/or treatment rendered: (x ) Melena due to gastric ulcers ( ) Melena due to duodenal bulb ulcers ( ) Melena due to other (please specify) ( ) Other, please specify: ( ) Clinically unable to determine COMMENTS: Use of terms such as suspected, likely, or probable (associated with a specific diagnosis that is being evaluated, monitored, or treated as if it exists) are acceptable and can be restated in the discharge summary if not ruled out. MTDD
== END 2017-03-16 13:40 | disposition home or self-care (01) | DRG 378 ==
LOC: N.ED 16:16 → N.EDINP 18:04 → SUATTDRO 18:04 → N.ICU 19:41 → N.TELEN 03-14 17:16
PROVIDERS: ADMIT Internal Medicine; ATTEND Internal Medicine